=== PATIENT | female | born 1990 | race Caucasian/White ===

== ENCOUNTER 2019-05-21 21:35 | Emergency (ER) | payer BC ==
--- NOTE | 2019-05-21 22:11 | ER Document Report ---
ED GI/ - General Chief Complaint: Vaginal Bleeding Stated Complaint: VAGINAL BLEEDING Time Seen by Provider: 05/21/19 22:11 Primary Care Provider: CECI ALLRED MD [Primary Care Provider] - Follow up as needed Mode of Arrival: Ambulatory Information source: Patient Notes: Patient is a 28-year-old female presenting to the emergency department with chief complaints of vaginal bleeding in the setting of . Patient reports low abdominal cramping. Patient also states she had some bright red blood on the toilet paper when she was wiping after having a bowel movement. Denies the knowledge of any hemorrhoids. She is a G3, P2. TRAVEL OUTSIDE OF THE [place] IN LAST 30 DAYS: No - Related Data Allergies/Adverse Reactions: No Known Allergies Allergy (Unverified 05/21/19 22:06) Past Medical History - General Information source: Patient - Social History Smoking Status: Never Smoker Frequency of alcohol use: None Drug Abuse: None Family History: Reviewed & Not Pertinent Pulmonary Medical History: Reports: Hx Asthma Past Surgical History: Reports: Hx Cholecystectomy, Hx Tonsillectomy Review of Systems - Review of Systems Constitutional: No symptoms reported EENT: No symptoms reported Cardiovascular: No symptoms reported Respiratory: No symptoms reported Gastrointestinal: See HPI Genitourinary: No symptoms reported Female Genitourinary: See HPI Musculoskeletal: No symptoms reported Skin: No symptoms reported Hematologic/Lymphatic: No symptoms reported Neurological/Psychological: No symptoms reported Physical Exam - Vital signs Vitals: Temp Pulse Resp BP Pulse Ox 98.0 F 96 16 123/68 100 05/21/19 21:38 05/21/19 21:38 05/21/19 21:38 05/21/19 21:38 05/21/19 21:38 - Notes Notes: PHYSICAL EXAMINATION: GENERAL: Well-appearing, well-nourished and in no acute distress. HEAD: Atraumatic, normocephalic. EYES: Pupils equal round and reactive to light, extraocular movements intact, conjunctiva are normal. ENT: Nares patent, oropharynx clear without exudates. Moist mucous membranes. NECK: Normal range of motion, supple without lymphadenopathy LUNGS: Breath sounds clear to auscultation bilaterally and equal. No wheezes rales or rhonchi. HEART: Regular rate and rhythm without murmurs ABDOMEN: Soft, nontender, nondistended abdomen. No guarding, no rebound. No masses appreciated. Female : deferred Musculoskeletal: Normal range of motion, no pitting or edema. No cyanosis. NEUROLOGICAL: Cranial nerves grossly intact. Normal speech, normal gait. Normal sensory, motor exams PSYCH: Normal mood, normal affect. SKIN: Warm, Dry, normal turgor, no rashes or lesions noted. Course - Re-evaluation Re-evalutation: Laboratory 05/21/19 05/21/19 05/21/19 22:12 22:12 22:12 WBC 9.8 RBC 4.27 Hgb 13.2 Hct 38.4 MCV 90 MCH 30.9 MCHC 34.5 RDW 13.0 Plt Count 183 Lymph % (Auto) 25.7 Craig % (Auto) 5.6 Eos % (Auto) 0.6 Baso % (Auto) 0.4 Absolute Neuts (auto) 6.7 Absolute Lymphs (auto) 2.5 Absolute Monos (auto) 0.5 Absolute Eos (auto) 0.1 Absolute Basos (auto) 0.0 Seg Neutrophils % 67.7 Sodium 136.9 L Potassium 3.8 Chloride 104 Carbon Dioxide 23 Anion Gap 10 BUN 4 L Creatinine 0.47 L Est GFR ( Amer) > 60 Est GFR (MDRD) Non-Af > 60 Glucose 95 Calcium 9.0 Total Bilirubin 0.4 Direct Bilirubin 0.1 Neonat Total Bilirubin Not Reportable Neonat Direct Bilirubin Not Reportable Neonat Indirect Bili Not Reportable AST 17 ALT 11 Alkaline Phosphatase 75 Total Protein 6.9 Albumin 4.0 Beta HCG, Quant 315520.00 H Total Beta HCG POSITIVE Urine Color Urine Appearance Urine pH Ur Specific [place] Urine Protein Urine Glucose (UA) Urine Ketones Urine Blood Urine Nitrite Urine Bilirubin Urine Urobilinogen Ur Leukocyte Esterase Urine WBC (Auto) Urine RBC (Auto) Urine Bacteria (Auto) Squamous Epi Cells Auto Urine Mucus (Auto) Urine Ascorbic Acid Blood Type O POSITIVE Rhogam Indicated RHOGAM NOT INDICATED 05/21/19 22:12 WBC RBC Hgb Hct MCV MCH MCHC RDW Plt Count Lymph % (Auto) Craig % (Auto) Eos % (Auto) Baso % (Auto) Absolute Neuts (auto) Absolute Lymphs (auto) Absolute Monos (auto) Absolute Eos (auto) Absolute Basos (auto) Seg Neutrophils % Sodium Potassium Chloride Carbon Dioxide Anion Gap BUN Creatinine Est GFR ( Amer) Est GFR (MDRD) Non-Af Glucose Calcium Total Bilirubin Direct Bilirubin Neonat Total Bilirubin Neonat Direct Bilirubin Neonat Indirect Bili AST ALT Alkaline Phosphatase Total Protein Albumin Beta HCG, Quant Total Beta HCG Urine Color YELLOW Urine Appearance CLEAR Urine pH 6.0 Ur Specific [place] 1.010 Urine Protein NEGATIVE Urine Glucose (UA) NEGATIVE Urine Ketones NEGATIVE Urine Blood SMALL H Urine Nitrite NEGATIVE Urine Bilirubin NEGATIVE Urine Urobilinogen NEGATIVE Ur Leukocyte Esterase NEGATIVE Urine WBC (Auto) 0 Urine RBC (Auto) 1 Urine Bacteria (Auto) TRACE Squamous Epi Cells Auto 3 Urine Mucus (Auto) RARE Urine Ascorbic Acid NEGATIVE Blood Type Rhogam Indicated Obstetrics Ultrasound 05/21/19 22:12 IMPRESSION: Living IUP corresponding to 12 weeks two days Patient appears well, nontoxic, vital signs within normal limits. Labs and ultrasound as outlined above. Patient stable for discharge home. Encourage close follow-up with [facility]. The patient's emergency department workup and current diagnosis were explained to the patient and or family. Follow-up instructions were provided. Medicat ions if prescribed were discussed. Instructions for when to return to the emergency department including specific worrisome symptoms were discussed with the patient and/or family. - Vital Signs Vital signs: Temp Pulse Resp BP Pulse Ox 97.8 F 76 16 117/62 100 05/22/19 00:22 05/22/19 00:22 05/22/19 00:22 05/22/19 00:22 05/22/19 00:22 - Laboratory Result Diagrams: 05/21/19 22:12 05/21/19 22:12 Laboratory results interpreted by me: 05/21/19 05/21/19 22:12 22:12 Sodium 136.9 L BUN 4 L Creatinine 0.47 L Beta HCG, Quant 280952.00 H Urine Blood SMALL H Discharge - Discharge Clinical Impression: Vaginal bleeding during Condition: Stable Disposition: HOME, SELF-CARE Additional Instructions: Your were seen in the emergency department tonight with concerns for vaginal bleeding during . Your hormone levels and your ultrasound were normal. Please return to the emergency department if you develop worsening vaginal bleeding that is bleeding through more than 1 pad per hour for 4 hours consecutively, you pass out or have any concerning symptoms. Please follow-up w ith your [facility] on Sunday if your bleeding resolves. If your bleeding continues but is not severe you may return here in 2 days for repeat ultrasound and repeat blood work. Referrals: ALLRED,CECI, MD [Primary Care Provider] - Follow up as needed
[2019-05-21 22:32] LABS: ABSOLUTE EOSINOPHILS # (AUTO) 0.1 10^3/uL (0.0-0.6); ABSOLUTE LYMPHOCYTES (AUTO) 2.5 10^3/uL (0.5-4.7); ABSOLUTE MONOCYTES (AUTO) 0.5 10^3/uL (0.1-1.4); ABSOLUTE NEUT (AUTO) 6.7 10^3/uL (1.7-8.2); BASOPHILS % (AUTO) 0.4 % (0-2); EOSINOPHILS % (AUTO) 0.6 % (0-6); HEMATOCRIT 38.4 % (36.0-47.0); HEMOGLOBIN 13.2 g/dL (12.0-15.5); LYMPHOCYTES % (AUTO) 25.7 % (13-45); MEAN CORPUSCULAR HEMOGLOBIN 30.9 pg (27.0-33.4); MEAN CORPUSCULAR HGB CONC 34.5 g/dL (32.0-36.0); MEAN CORPUSCULAR VOLUME 90 fl (80-97); MONOCYTES % (AUTO) 5.6 % (3-13); PLATELET COUNT 183 10^3/uL (150-450); RED BLOOD COUNT 4.27 10^6/uL (3.72-5.28); SEGMENTED NEUTROPHILS % (AUTO) 67.7 % (42-78); TOTAL CELLS COUNTED % (AUTO) 100 %; WHITE BLOOD COUNT 9.8 10^3/uL (4.0-10.5)
[2019-05-21 22:33] LABS: APPEARANCE,URINE CLEAR; BILIRUBIN,URINE NEGATIVE (NEGATIVE); COLOR,URINE YELLOW; GLUCOSE, URINE NEGATIVE (NEGATIVE); KETONES,URINE NEGATIVE (NEGATIVE); LEUKOCYTE ESTERASE,URINE NEGATIVE (NEGATIVE); NITRITE,URINE NEGATIVE (NEGATIVE); PROTEIN,URINE NEGATIVE (NEGATIVE); UROBILINOGEN,URINE NEGATIVE mg/dL (<2.0)
[2019-05-21 22:51] LABS: ALKALINE PHOSPHATASE 75 U/L (38-126); ANION GAP 10 (5-19); ASPARTATE AMINO TRANSFERASE 17 U/L (14-36); BILIRUBIN,DIRECT 0.1 mg/dL (0.0-0.4); BILIRUBIN,TOTAL 0.4 mg/dL (0.2-1.3); BLOOD UREA NITROGEN 4 mg/dL (7-20); CARBON DIOXIDE 23 mmol/L (22-30); CHLORIDE 104 mmol/L (98-107); GLUCOSE 95 mg/dL (75-110); POTASSIUM 3.8 mmol/L (3.6-5.0); TOTAL PROTEIN 6.9 g/dL (6.3-8.2)
--- NOTE | 2019-05-21 23:27 | RADIOLOGY REPORT (SQ) ---
EXAM DESCRIPTION: CLINICAL HISTORY: 28 years Female preg, vag bleed COMPARISON: None. TECHNIQUE: Transabdominal duplex imaging performed to evaluate the pelvis. FINDINGS: Uterus measures 9.4 x 7.6 cm. Fundal placenta. Cervix measures 3.7 cm. Paradis-rump length measures 5.8 cm. Heart rate 162 bpm. Subjectively normal JESSA. Estimated age 12 weeks two days. IMPRESSION: Living IUP corresponding to 12 weeks two days
[2019-05-22 00:22] VITALS: BP 117/62
== END 2019-05-22 00:22 | disposition home or self-care (01) ==
LOC: ER 21:35
DX: O46.90 Antepartum hemorrhage, unspecified, unspecified trimester (principal); O99.519 Diseases of the respiratory system complicating pregnancy, unspecified trimester; J45.909 Unspecified asthma, uncomplicated; Z3A.00 Weeks of gestation of pregnancy not specified
CPT/HCPCS: 36415; 76801; 80053; 81001; 84702; 85025; 86900; 86901; 99284